=== PATIENT | female | born 1990 | race Caucasian/White ===

== ENCOUNTER 2025-01-04 06:24 | Day surgery (SDC) | payer OTHER, SELFPAY | END 2025-01-04 12:47 | disposition home or self-care (01) | LOC: GI 06:24 | PROVIDERS: ATTENDING PHYSICIAN Internal Medicine Gastroenterology | DX: Z12.11 Encounter for screening for malignant neoplasm of colon (principal); D12.4 Benign neoplasm of descending colon; D12.8 Benign neoplasm of rectum; Z83.719 Family history of colon polyps, unspecified | CPT/HCPCS: 45385; 88305 ==